=== PATIENT | male | born 1995 | race Caucasian/White ===

== ENCOUNTER 2018-10-04 14:15 | Emergency (ER) | payer SELFPAY ==
[~2018-10-04] VITALS: Ht 175.3 cm; Wt 60.0 kg
[2018-10-04] MEDS ORDERED: IBUPROFEN 600MG TABLET PO ONE (15:45)
[2018-10-04 18:11] VITALS: BP 119/67
== END 2018-10-04 18:22 | disposition home or self-care (01) ==
LOC: ER 14:15
DX: S06.0X1A Concussion with loss of consciousness of 30 minutes or less, initial encounter (principal); S13.4XXA Sprain of ligaments of cervical spine, initial encounter; S20.20XA Contusion of thorax, unspecified, initial encounter; S49.92XA Unspecified injury of left shoulder and upper arm, initial encounter; V47.5XXA Car driver injured in collision with fixed or stationary object in traffic accident, initial encounter; Y93.89 Activity, other specified; Y92.488 Other paved roadways as the place of occurrence of the external cause
CPT/HCPCS: 71250; 73030; 73060; 99284

== ENCOUNTER 2019-09-15 08:59 | Emergency (ER) | payer MEDICAID ==
[~2019-09-15] VITALS: Ht 177.8 cm; Wt 68.0 kg
[2019-09-15] MEDS ORDERED: CEFTRIAXONE SODIUM 250 MG/VIAL IM ONE (09:30)
[2019-09-15] MEDS ORDERED: AZITHROMYCIN 500 MG TABLET PO ONE (09:30)
[2019-09-15] MEDS ORDERED: METRONIDAZOLE 500MG TABLET PO ONE (09:30)
[2019-09-15 10:52] VITALS: BP 127/74
[2019-09-18 04:32] LABS: NEISSERIA GONORRHOEAE NAA Negative (Negative)
== END 2019-09-15 10:52 | disposition home or self-care (01) ==
LOC: ER 08:59
DX: Z20.2 Contact with and (suspected) exposure to infections with a predominantly sexual mode of transmission (principal); Z71.89 Other specified counseling; R03.0 Elevated blood-pressure reading, without diagnosis of hypertension
CPT/HCPCS: 87491; 87591; 96372; 99283; J0696

== ENCOUNTER 2023-11-19 01:20 | Emergency (ER) | payer MEDICAID ==
[~2023-11-19] VITALS: Ht 175.3 cm; Wt 77.0 kg
[2023-11-19 01:22] VITALS: O2SAT 100
[2023-11-19] MEDS: LORAZEPAM 2MG/ML INJ IM ONE (02:16)
[2023-11-19] MEDS: OLANZAPINE 5MG TABLET ODT PO ONE (02:16)
[2023-11-19 03:56] LABS: BASOPHILS % 1.1 % (0.0-2.0); EOSINOPHILS % 7.8 % (0.0-5.0); HEMATOCRIT. 42.8 % (42.0-52.0); HEMOGLOBIN. 15.1 g/dL (14.0-18.0); LYMPHOCYTES % 32.5 % (20.0-50.0); MEAN CORPUSCULAR HEMOGLOBIN 31.1 pg (28.0-32.0); MEAN CORPUSCULAR HGB CONC 35.4 g/dL (31.0-37.0); MEAN CORPUSCULAR VOLUME 88.1 fL (80.0-94.0); MEAN PLATELET VOLUME 7.3 fl (7.4-10.4); MONOCYTES % 8.9 % (2.0-8.0); NEUTROPHILS % 49.7 % (40.0-76.0); PLATELET 207 x1000/uL (130-400); RED BLOOD CELL COUNT 4.86 mill/uL (4.7-6.1); RED CELL DISTRIBUTION WIDTH 12.6 % (11.6-14.6)
[2023-11-19 04:11] LABS: CHLORIDE 108 mEq/L (98-107); POTASSIUM 3.2 mEq/L (3.5-5.1); SODIUM 138 mEq/L (136-145)
[2023-11-19 04:12] LABS: CARBON DIOXIDE 26 mEq/L (21-32)
[2023-11-19 04:17] LABS: CREATININE 0.8 mg/dL (0.6-1.3); GLUCOSE 90 mg/dL (70-105); UREA NITROGEN BLOOD 10 mg/dL (9-23)
[2023-11-19 04:19] LABS: ACETAMINOPHEN < 2 ug/mL (10-30); ALANINE AMINOTRANSFERASE 17 IU/L (10-49); ALBUMIN 4.2 g/dL (3.2-4.8); ASPARTATE AMINOTRANSFERASE 21 IU/L (<34); BILIRUBIN DIRECT 0.4 mg/dL (<=3.0); BILIRUBIN TOTAL 1.2 mg/dL (0.1-1.0); PROTEIN TOTAL 6.8 g/dL (6.0-8.3)
[2023-11-19 04:22] LABS: ETHANOL BLOOD < 10 mg/dL (<10)
[2023-11-19] MEDS: POTASSIUM CHLORIDE 20MEQ/PACKET PO NR (10:53)
[2023-11-19 18:56] LABS: CLARITY URINE CLEAR (CLEAR); COLOR URINE YELLOW (YELLOW); GLUCOSE URINE NEGATIVE (NEGATIVE); KETONES URINE TRACE (NEGATIVE); LEUKOCYTE ESTERASE URINE NEGATIVE (NEGATIVE); NITRITE URINE NEGATIVE (NEGATIVE); OCCULT BLOOD URINE NEGATIVE (NEGATIVE); PROTEIN URINE NEGATIVE (NEGATIVE); SPECIFIC GRAVITY URINE 1.019 (1.005-1.030)
[2023-11-19 19:09] LABS: *AMPHETAMINES SCREEN URINE PRESUMPTIVE POSITIVE (NEGATIVE); *BARBITURATES SCREEN URINE NEGATIVE (NEGATIVE); *BENZODIAZEPINES SCREEN URINE NEGATIVE (NEGATIVE); *COCAINE SCREEN URINE NEGATIVE (NEGATIVE); METHADONE URINE SCREEN NEGATIVE (NEGATIVE)
[2023-11-19 19:10] LABS: CANNABINOID URINE SCREEN PRESUMPTIVE POSITIVE (NEGATIVE); ECSTASY MDMA SCREEN URINE CONF.TEST INDICATED (NEGATIVE); OPIATES URINE SCREEN NEGATIVE (NEGATIVE); PHENCYCLIDINE URINE SCREEN NEGATIVE (NEGATIVE)
[2023-11-20] MEDS: DIPHENHYDRAMINE 50MG/ML VIAL IM STA (19:08)
[2023-11-20] MEDS: HALOPERIDOL LACTATE 5MG/ML VIAL IM ONE (19:08)
[2023-11-20] MEDS: RISPERIDONE 1MG TABLET PO SCH (23:17)
[2023-11-21 14:48] LABS: CHLORIDE 106 mEq/L (98-107); POTASSIUM 3.8 mEq/L (3.5-5.1); SODIUM 139 mEq/L (136-145)
[2023-11-21 14:49] LABS: CALCIUM 8.8 mg/dL (8.7-10.4); CARBON DIOXIDE 29 mEq/L (21-32)
[2023-11-21 14:54] LABS: CREATININE 0.9 mg/dL (0.6-1.3); GLUCOSE 88 mg/dL (70-105); UREA NITROGEN BLOOD 9 mg/dL (9-23)
[2023-11-21 14:56] LABS: ALANINE AMINOTRANSFERASE 19 IU/L (10-49); ALBUMIN 4.1 g/dL (3.2-4.8); ASPARTATE AMINOTRANSFERASE 26 IU/L (<34)
[2023-11-21 14:57] LABS: BILIRUBIN TOTAL 1.1 mg/dL (0.1-1.0); PROTEIN TOTAL 6.6 g/dL (6.0-8.3)
[2023-11-23 11:24] VITALS: BP 109/61; PULSE 78; RESP 17; TEMP 98.1
== END 2023-11-23 12:00 | disposition home or self-care (01) ==
LOC: ER 01:30
DX: R45.851 Suicidal ideations (principal); F20.9 Schizophrenia, unspecified; J45.909 Unspecified asthma, uncomplicated; Z20.822 Contact with and (suspected) exposure to COVID-19
CPT/HCPCS: 80076; 80053; 80305; 80048; 81003; 80307; 80329; 80320; 85025; 36415; 96372 ×2; 99291; 87426; J2060; Z7610 ×3; J1200; J1630; 99285; G0480

== ENCOUNTER 2024-05-05 16:45 | Emergency (ER) | payer MEDICARE, MEDICAID ==
[~2024-05-05] VITALS: Ht 177.8 cm; Wt 70.0 kg
[2024-05-05 16:56] VITALS: O2SAT 100
[2024-05-05 18:08] VITALS: BP 116/78; PULSE 88; RESP 18; TEMP 36.50292; O2SAT 100
== END 2024-05-05 19:30 | disposition home or self-care (01) ==
LOC: ER 16:45
DX: F91.9 Conduct disorder, unspecified (principal); R45.851 Suicidal ideations; F25.9 Schizoaffective disorder, unspecified; J45.909 Unspecified asthma, uncomplicated; H40.9 Unspecified glaucoma; F10.90 Alcohol use, unspecified, uncomplicated; F15.90 Other stimulant use, unspecified, uncomplicated; F12.90 Cannabis use, unspecified, uncomplicated; Y90.9 Presence of alcohol in blood, level not specified
CPT/HCPCS: 99281